=== PATIENT | male | born 1935 | race Caucasian/White ===

== ENCOUNTER 2023-04-10 17:29 | Inpatient (IN) | payer OTHER ==
[~2023-04-10] VITALS: Ht 172.7 cm; Wt 85.0 kg
[2023-04-10 18:23] LABS: Magnesium, Blood 2.8 mg/dL (1.6-2.4)
[2023-04-10 18:28] LABS: Bun/Creatinine Ratio 18.6 (12.0-20.0); Calcium, Blood 14.7 mg/dL (8.5-10.1); Creatinine, Blood 3.66 mg/dL (0.60-1.20)
[2023-04-10 19:10] LABS: Source, Urine Clean Catch
[2023-04-10 19:17] LABS: Appearance, Urine Clear (Clear); Bilirubin, Urine Neg (Neg); Blood, Urine 1+ (Neg); Color, Urine Yellow (P-Yellow); Glucose Qualitative, Urine Neg (Neg); Ketones, Urine 1+ (Neg); Leukocyte Esterase, Urine 1+ (Neg); Nitrite, Urine Neg (Neg); Protein, Urine 2+ (Neg); Specific Gravity, Urine 1.015 (1.003-1.022); Urobilinogen, Urine NORM (Normal)
[2023-04-10 19:21] LABS: Phosphorus, Blood 3.6 mg/dL (2.5-4.9)
[2023-04-10 19:23] LABS: Bacteria Mod /hpf; Hyaline Casts 0-2 /lpf (0-2); Renal Epithelial Rare /hpf (0-Rare)
[2023-04-10 19:24] LABS: Calcium Oxalate Crystals Few /hpf; Squamous Epithelial Cells Rare /hpf (Few)
[2023-04-10] MEDS ORDERED: Sanctura20 MG PO (20:49)
[2023-04-10 21:45] VITALS: BP 169/80
[2023-04-10 21:54] LABS: Base Excess Venous -3.2 mmol/L; Bicarbonate Venous 22.4 mmol/L (24.0-30.0); PCO2 Venous 32.5 mmHg (38-42); pH Blood Venous 7.42 (7.34-7.37)
--- NOTE | 2023-04-11 03:57 | NUR ---
SHIFT SUMMARY. PT ARRIVED ON UNIT EARLY IN SHIFT. AOX4, PLEASANT, COOPERATIVE WITH CARE. VERY [place]. FLUIDS RUNNING THROUGHOUT SHIFT @ 150MLS/HR. NO COMPLAINTS OF PAIN. SKIN ASSESSMENT UNREMARKABLE OUTSIDE OF ABRASION ON L ELBOW FROM FALL ON 03/17. BANDAGE IN PLACE. LUX PLACED IN ED, PT HAS CHRONIC RETENTION AND HAS BEEN SELF CATHING FOR 5 YEARS PER ED NOTE. ROOM AIR. HAS NOT AMBULATED OR TRANSFERRED SINCE ARRIVING. HAS SLEPT THROUGH MOST OF SHIFT AFTER BEING ADMITTED. CALLS APPROPRIATELY. BED LOCKED IN LOWEST POSITION. CALL LIGHT LEFT WITHIN REACH.
[2023-04-11 04:33] VITALS: BP 163/74
[2023-04-11 05:44] LABS: Albumin, Blood 2.6 g/dL (3.4-5.0); Albumin/Globulin Ratio 0.7 (0.8-1.8); Bilirubin, Total 0.4 mg/dL (0.1-1.0); Bun/Creatinine Ratio 16.4 (12.0-20.0); Calcium, Blood 11.7 mg/dL (8.5-10.1); Creatinine, Blood 3.3 mg/dL (0.60-1.20); Globulin, Blood 3.8 g/dL (2.2-4.0); Potassium, Blood 3.7 mmol/L (3.5-5.5); Total Protein, Blood 6.4 g/dL (6.4-8.2)
[2023-04-11 05:48] VITALS: BP 118/61
--- NOTE | 2023-04-11 05:54 | NUR ---
TELE CALLED AT ABOUT ~0535 REPORTING THAT PT WAS HAVING A LITTLE BIT OF ST ELEVATION ON MCL LEAD. WAS RUNNING NSR AT TIME OF CONVERSATION. PT DENIED CHEST PAIN OR PRESSURE, NAUSEA, SOB, DISCOMFORT OF ANY KIND. VITALS ALL WNL. CALLED TO NOTIFY HOSPITALIST BERNA[place]TE. NO ORDERS AT THIS TIME. WILL CONTINUE TO MONITOR.
[2023-04-11 07:45] VITALS: BP 130/65
[2023-04-11 14:42] VITALS: BP 129/70
--- NOTE | 2023-04-11 17:19 | NUR ---
SHIFT SUMMARY PATIENT MORE AWAKE THE SHIFT PROGRESSED. PATIENT ABLE TO EXPRESS NEEDS WHEN ASKED. EDUCATION PROVIDED TO PATIENT AND RELATED TO SUPPLEMENTS AND OVER USE. NEEDING FURTHER EDUCATION RELATED TO ACCEPTABLE AMOUNTS OF SUPPLEMENTS FOR HEALTH. PATIENT SELF CATHS AT HOME. PATIENT CONTINUES TO DRAIN YELLOW URINE FROM LUX. PATIENT DENIES ANY PAIN OR SHORTNESS OF BREATH.
[2023-04-11 19:11] VITALS: BP 143/74
[2023-04-12 04:19] VITALS: BP 124/69
--- NOTE | 2023-04-12 05:26 | NUR ---
SHIFT SUMMARY. SHIFT HAS BEEN UNREMARKABLE. TELE WAS DISCONTINUED EARLY THIS SHIFT. NO PAIN REPORTED THIS SHIFT. PT IS AOX4, PLEASANT, COOPERATIVE WITH CARE. SLEPT THROUGH MOST OF SHIFT AFTER 2100 MEDICATION ADMINISTRATION AND SHIFT ASSESSMENT. CALLS APPROPRIATELY. NS RUNNING THROUGHOUT SHIFT. BED LOCKED IN LOWEST POSITION. CALL LIGHT LEFT WITHIN REACH.
[2023-04-12 06:02] LABS: Bun/Creatinine Ratio 15.9 (12.0-20.0); Calcium, Blood 10.4 mg/dL (8.5-10.1); Creatinine, Blood 3.15 mg/dL (0.60-1.20); Magnesium, Blood 1.9 mg/dL (1.6-2.4); Phosphorus, Blood 3.1 mg/dL (2.5-4.9); Potassium, Blood 3.9 mmol/L (3.5-5.5)
[2023-04-12 07:15] VITALS: BP 135/63
[2023-04-12] MEDS ORDERED: THERA-D2000 UNIT PO (13:44)
--- NOTE | 2023-04-12 18:50 | NUR ---
SHIFT SUMMARY AND DISCHARGE PATIENT MORE AWAKE AND INTERACTIVE TODAY. PATIENT VERY HARD OF HEARING. IS CAREGIVER TO PATIENT AND MANAGES MEDICATIONS. PATIENT ADMITS THAT HE DOES NOT EAT MUCH AND IS ALWAYS NAUSEATED. USING MULTIPLE SUPPLEMENTS. PATIENT AND EDUCATED ON THE IMPORTANCE OF LIMITING AMOUNTS OF SUPPLEMENTS. PATIENT TO FOLLOW UP WITH MACHINE BRUSHER IN [place]. DISCHARGE INSTRUCTIONS REVIEWED WITH AND PATIENT. PATIENT TAKEN OUT VIA WHEELCHAIR. LUX CATHETER DC'D PRIOR TO DISCHARGE. PATIENT TO RETURN TO SELF CATHING. IV DC'D WITH CATHETER INTACT. BELONGINGS SENT HOME WITH PATEINT. ROOM CHECK DONE BEFORE PATIENT TAKEN OUT VIA WHEELCHAIR.
== END 2023-04-12 16:41 | disposition home or self-care (01) | DRG 640 ==
LOC: ER 17:29 → MEDS 20:57 → ENPENDDIS 04-12 11:35 → MEDS 04-12 16:41
PROVIDERS: Emergency Medicine; Internal Medicine; Nurse Practitioner Acute Care; Student in an Organized Health Care Education/Training Program; ADMIT Internal Medicine
DX: E83.52 Hypercalcemia (principal); G92.8 Other toxic encephalopathy; N18.5 Chronic kidney disease, stage 5; E87.20 Acidosis, unspecified; N17.9 Acute kidney failure, unspecified; I48.0 Paroxysmal atrial fibrillation; R33.9 Retention of urine, unspecified; E86.0 Dehydration; I45.10 Unspecified right bundle-branch block
CPT/HCPCS: 36415; 51702; 51798; 71045; 76770; 80048; 80053; 81001; 82306; 82310; 82330; 82550; 82803; 83735; 83970; 84100; 84153; 87086; 93005; 93010; 96360-59; 96361-59; 96372; 99285-25; J0630; J1644; J2405; J7030

== ENCOUNTER → 2023-04-10 | Outpatient (CLI) | payer OTHER ==
[~2023-04-10] MED LIST: Sanctura20 MG PO; THERA-D2000 UNIT PO
[2023-04-10 16:22] LABS: BASOPHILS ABSOLUTE AUTO 0.03 K/mm3 (0.00-0.23); BASOPHILS PERCENT AUTO 0 % (0-2); EOSINOPHILS ABSOLUTE AUTO 0.06 K/mm3 (0.00-0.68); EOSINOPHILS PERCENT AUTO 1 % (0-6); Hematocrit 42.1 % (37.0-53.0); Hemoglobin 13.7 g/dL (13.5-17.5); IMMATURE GRAN ABSOLUTE AUTO 0.04 K/mm3 (0.00-0.10); IMMATURE GRAN PERCENT AUTO 0 % (0-1); LYMPHOCYTES ABSOLUTE AUTO 1.74 K/mm3 (0.84-5.20); LYMPHOCYTES PERCENT AUTO 19 % (21-46); MONOCYTES PERCENT AUTO 9 % (4-13); Mean Corpuscular HGB 29.1 pg (26.0-34.0); Mean Corpuscular HGB Conc 32.5 g/dL (31.5-36.5); Mean Corpuscular Volume 90 fL (80-100); Mean Platelet Volume 8.7 fL (9.1-12.4); NEUTROPHILS ABSOLUTE AUTO 6.35 K/mm3 (1.96-9.15); NEUTROPHILS PERCENT AUTO 70 % (41-73); Platelet Count 290 K/mm3 (150-400); RDW Standard Deviation 45.5 fL (35.1-46.3); White Blood Cell Count 9.02 K/mm3 (4.00-11.30)
[2023-04-10 16:30] LABS: Albumin, Blood 3.4 g/dL (3.4-5.0); Albumin/Globulin Ratio 0.6 (0.8-1.8); Bilirubin, Total 0.4 mg/dL (0.1-1.0); Bun/Creatinine Ratio 16.5 (12.0-20.0); Creatinine, Blood 4.13 mg/dL (0.60-1.20); Globulin, Blood 5.8 g/dL (2.2-4.0); Magnesium, Blood 2.6 mg/dL (1.6-2.4); Potassium, Blood 4.1 mmol/L (3.5-5.5); Total Protein, Blood 9.2 g/dL (6.4-8.2)
[2023-04-10 17:29] LABS: Free Thyroxine 1.36 ng/dL (0.70-1.60); Thyroid Stimulating Hormone 2.294 uIU/mL (0.360-4.800)
== END ==
LOC: LAB 16:15 → LAB SHORT 16:15
PROVIDERS: Chiropractor
DX: R53.1 Weakness (principal); N39.0 Urinary tract infection, site not specified; E83.52 Hypercalcemia
CPT/HCPCS: 80053; 82330; 83690; 83735; 83970; 84439; 84443; 84484; 85025; 87086